=== PATIENT | female | born 1985 | race Asian ===

== ENCOUNTER 2023-05-18 10:46 | Emergency (ER) | payer BC, OTHER ==
[~2023-05-18] VITALS: Ht 154.9 cm; Wt 59.0 kg
[2023-05-18 11:46] VITALS: BP 118/66; TEMP 210.2; O2SAT 97
== END 2023-05-18 11:47 | disposition home or self-care (01) ==
LOC: ER 10:55
DX: J02.9 Acute pharyngitis, unspecified (principal); Z60.2 Problems related to living alone
CPT/HCPCS: 86403-TC